=== PATIENT | male | born 1990 | race Caucasian/White ===

== ENCOUNTER 2019-12-01 14:40 | Inpatient (IN) | payer OTHER ==
[2019-12-01 15:58] LABS: Basophils % (A) 0 %; Eosinophils # (A) 0.2 k/uL (0-0.7); Eosinophils % (A) 2 %; HCT 43.3 % (39.0-53.0); HGB 14.5 gm/dL (13.0-17.5); Lymphocytes # (A) 1.2 k/uL (1.0-4.8); Lymphocytes % (A) 12 %; MCH 28.1 pg (25.0-35.0); MCHC 33.4 g/dL (31.0-37.0); MCV 84.3 fL (80.0-100.0); Mean Platelet Volume 8.8; Monocytes # (A) 0.5 k/uL (0-1.0); Monocytes % (A) 5 %; Neutrophils # (A) 8.2 k/uL (1.3-7.7); Neutrophils % (A) 80 %; Platelet Count 198 k/uL (150-450); RBC 5.14 m/uL (4.30-5.90); RDW 12.6 % (11.5-15.5); WBC 10.2 k/uL (3.8-10.6)
[2019-12-01 16:06] LABS: ALT 68 U/L (4-49); AST 37 U/L (17-59); African American GFR (CKD) >90 (>60 ml/min/1.73 sqM); Albumin 4.6 g/dL (3.5-5.0); Alkaline Phosphatase 70 U/L (38-126); Anion Gap 8 mmol/L; Blood Urea Nitrogen 12 mg/dL (9-20); Calcium 9.4 mg/dL (8.4-10.2); Carbon Dioxide 27 mmol/L (22-30); Chloride 101 mmol/L (98-107); Glucose 120 mg/dL (74-99); Magnesium 1.8 mg/dL (1.6-2.3); Non-African American GFR(CKD) >90 (>60 ml/min/1.73 sqM); Potassium 4.4 mmol/L (3.5-5.1); Sodium 136 mmol/L (137-145); Total Bilirubin 0.5 mg/dL (0.2-1.3); Total Protein 7.6 g/dL (6.3-8.2)
[2019-12-01 16:22] LABS: D-Dimer <0.17 mg/L FEU (<0.60); Partial Thromboplastin Time 25.1 sec (22.0-30.0); Prothrombin Time 10.7 sec (9.0-12.0)
[2019-12-01] MEDS ORDERED: HYDROmorphone 1 MG/ML 1 ML SYRINGE IVP STA (16:25)
[2019-12-01] MEDS ORDERED: LORazepam 2 MG/ML INJ IV STA ×2 (16:25→17:34)
--- NOTE | 2019-12-01 16:35 | XR ---
EXAMINATION TYPE: XR chest 2V DATE OF EXAM: 12/01/2019 COMPARISON: None HISTORY: 29-year-old male with chest pain TECHNIQUE: Frontal and lateral views FINDINGS: There is slight shift of the heart towards the left with the very large right-sided pneumothorax appr oaching 90%. There is some hyperinflation that may reflect underlying emphysema. No pleural effusion. IMPRESSION: Large, greater than 90% right-sided pneumothorax with slight leftward cardiac shift suggesting early tension pneumothorax. Critical findings called to Dr. Bose in the ER at 4:30 PM.
--- NOTE | 2019-12-01 17:41 | XR ---
EXAMINATION TYPE: XR chest 1V portable DATE OF EXAM: 12/01/2019 Comparison: Earlier today Clinical History: 29-year-old male right-sided Thoravent placement Findings: Heart normal size. Aorta and pulmonary vasculature within normal limits. Partial reinflation of the r ight lung by approximately 50%. A right-sided pleural catheter is demonstrated. The previous leftward shift has resolved. Impression: Right-sided Thoravent catheter with partial reinflation of the right lung by approximately 50%. The p revious leftward cardiac shift has resolved.
--- NOTE | 2019-12-01 17:57 | ED ---
Chest Pain HPI - General Chief Complaint: Chest Pain Stated Complaint: Chest Pain Time Seen by Provider: 12/01/19 15:10 Source: EMS Mode of arrival: EMS Limitations: no limitations - History of Present Illness Initial Comments: The patient is a 29-year-old male with past medical history of IV drug abuse who presents to the emergency room with reported sudden onset right-sided chest pain. The patient is currently incarcerated. He states that he was relaxing when he had sudden onset of right-sided chest pain. Reports that it is pleuritic in nature and worse when he sits forward. No previous history of underlying pulmonary or cardiac disease. States it makes him feel extremely short of breath. Denies family history of sudden cardiac . No ripping or tearing sensation to his back. Denies diaphoresis, nausea or vomiting. Denies any abdominal pain, numbness, tingling or weakness in his lower extremities. Does admit to intravenous drug use however last used 1.5 months ago. Denies cough or hemoptysis. No fevers or chills. No history of endocarditis. There are no alleviating, precipitating or modifying factors - Related Data Home Medications Medication Instructions Recorded Confirmed Aspirin 325 mg PO ONCE 12/01/19 12/01/19 Allergies Allergy/AdvReac Type Severity Reaction Status Date / Time No Known Allergies Allergy Verified 12/01/19 18:04 Review of Systems ROS Statement: Those systems with pertinent positive or pertinent negative responses have been documented in the HPI. ROS Other: All systems not noted in ROS Statement are negative. EKG Findings - EKG Comments: EKG Findings:: EKQ demonstrates a sinus tachycardia with a ventricular rate of 102. ID interval 146. QRS 90. QTC of 435. No acute ST segment elevations or depressions concerning for ischemic changes Past Medical History Past Medical History: No Reported History History of Any Multi-Drug Resistant Organisms: None Reported Past Surgical History: No Surgical Hx Reported Past Psychological History: ADD/ADHD Smoking Status: Former smoker Past Alcohol Use History: None Reported Past Drug Use History: Methamphetamine - Past Family History Mother Family Medical History: No Reported History Father Family Medical History: Osteoarthritis (OA) General Exam Limitations: no limitations General appearance: alert, in no apparent distress Head exam: Present: atraumatic, normocephalic, normal inspection Eye exam: Present: normal appearance, PERRL, EOMI. Absent: scleral icterus, conjunctival injection, periorbital swelling ENT exam: Present: normal exam, mucous membranes moist Neck exam: Present: normal inspection. Absent: tenderness, meningismus, lymphadenopathy Respiratory exam: Present: other (no ausculated breath sounds on the right. Left sided breath sounds are present and clear). Absent: respiratory distress, wheezes, rales, rhonchi, stridor Cardiovascular Exam: Present: normal rhythm, tachycardia, normal heart sounds. Absent: systolic murmur, diastolic murmur, rubs, gallop, clicks GI/Abdominal exam: Present: soft, normal bowel sounds. Absent: distended, tenderness, guarding, rebound, rigid Extremities exam: Present: normal inspection, full ROM, normal capillary refill. Absent: tenderness, pedal edema, joint swelling, calf tenderness Back exam: Present: normal inspection Neurological exam: Present: alert, oriented X3, CN II-XII intact Psychiatric exam: Present: normal affect, normal mood Skin exam: Present: warm, dry, intact, normal color. Absent: rash Course Vital Signs 12/01/19 12/01/19 12/01/19 15:05 15:07 16:59 Temperature 99.0 F Pulse Rate 106 H 113 H Pulse Rate [ 102 H Creative Intern ] Respiratory 20 22 Rate Blood Pressure 134/89 148/97 Blood Pressure [Right Arm] O2 Sat by Pulse 98 100 Oximetry 12/01/19 12/01/19 12/01/19 17:05 17:15 17:36 Temperature Pulse Rate 101 H 109 H 86 Pulse Rate [ Creative Intern ] Respiratory 18 18 20 Rate Blood Pressure 139/108 148/101 146/80 Blood Pressure [Right Arm] O2 Sat by Pulse 100 100 100 Oximetry 12/01/19 12/01/19 12/01/19 19:08 19:39 19:44 Temperature 98.9 F 99.0 F Pulse Rate 90 76 Pulse Rate [ 76 Creative Intern ] Respiratory 18 18 18 Rate Blood Pressure 138/88 128/80 Blood Pressure 140/84 [Right Arm] O2 Sat by Pulse 100 100 100 Oximetry Procedures - [place] Protocol (Time Out) Procedure Performed:: Thoravedamaris Performing Provider: Celena Bose Nurse: Shakila Bautista Patient Identification (2 identifiers required): Chart, Verbal, Arm Band, Name, Birthdate 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 A thorough history and physical exam was performed. Peripheral IV was established. Laboratory studies were conducted and the patient was sent for chest x-ray. The chest x-ray is reviewed by myself and does demonstrate a large pneumothorax. It is read by the radiologist and results were called to me which reinforce the diagnosis of a large greater than 90% right-sided pneumothorax with slightly leftward cardiac shift suggesting early tension. The patient had been moved to trauma bay 2. He was given 1 mg of Dilaudid and 1 mg of Ativan for pain and anxiety. I did dis cuss placement of a chest tube for which the patient did agree. Timeout was performed at 1658. A Thoravent was used. Approximately 5 minutes after placement I did repeat a portal chest x-ray which demonstrates right-sided Thoravent catheter with partial reinflation of the right lung by approximately 50%. The thoravent was on wall suction and then was transferred over to an atrium. Patient does have improvement in his heart rate as well as pain level. I discussed admission with the patient which he did agree. The patient was admitted to Dr. Wright I also discussed the case with Dr. Flores who will be managing the patient's Thora vent. The patient remained in stable condition was transported to the floor Critical Care Time Critical Care Time: Yes (32 minutes independant of procedures performed) Disposition Clinical Impression: Chest pain, Spontaneous pneumothorax Disposition: ADMITTED IP TO THIS [facility] Condition: Serious Is patient prescribed a controlled substance at d/c from ED?: No Decision to Admit Reason: Admit from EC Decision Date: 12/01/19 Decision Time: 18:19
[2019-12-01] MEDS ORDERED: NALOXONE 0.4 MG/ML 1 ML VIAL IV PRN (18:19)
[2019-12-01] MEDS: MORPHINE SULFATE 4 MG/ML SYRINGE IV PRN (20:42)
[2019-12-01] MEDS: KETOROLAC 30 MG/ML 1 ML VIAL IVP PRN (23:19)
[2019-12-02 06:29] LABS: Basophils % (A) 0 %; Eosinophils # (A) 0.4 k/uL (0-0.7); Eosinophils % (A) 5 %; HCT 40.9 % (39.0-53.0); HGB 13.7 gm/dL (13.0-17.5); Lymphocytes # (A) 2.3 k/uL (1.0-4.8); Lymphocytes % (A) 27 %; MCH 28.4 pg (25.0-35.0); MCHC 33.6 g/dL (31.0-37.0); MCV 84.5 fL (80.0-100.0); Mean Platelet Volume 8.6; Monocytes # (A) 0.6 k/uL (0-1.0); Monocytes % (A) 8 %; Neutrophils % (A) 58 %; Platelet Count 237 k/uL (150-450); RBC 4.84 m/uL (4.30-5.90); RDW 12.6 % (11.5-15.5); WBC 8.6 k/uL (3.8-10.6)
[2019-12-02 06:42] LABS: African American GFR (CKD) >90 (>60 ml/min/1.73 sqM); Anion Gap 7 mmol/L; Blood Urea Nitrogen 12 mg/dL (9-20); Calcium 9.4 mg/dL (8.4-10.2); Carbon Dioxide 27 mmol/L (22-30); Chloride 104 mmol/L (98-107); Glucose 94 mg/dL (74-99); Non-African American GFR(CKD) >90 (>60 ml/min/1.73 sqM); Potassium 4.2 mmol/L (3.5-5.1); Sodium 138 mmol/L (137-145)
--- NOTE | 2019-12-02 07:46 | XR ---
EXAMINATION TYPE: XR chest 1V DATE OF EXAM: 12/02/2019 COMPARISON: 12/01/2019 HISTORY: Follow-up pneumothorax TECHNIQUE: Single frontal view of the chest is obtained. FINDINGS: Right-sided pleural catheter redemonstrated with persistent but much improved pneumothorax. Pneumotho rax is estimated at 20-25%. The lungs are clear. The cardiac silhouette size is within normal limits. The osseous structures are intact. IMPRESSION: 1. Right-sided pleural catheter redemonstrated with persistent but much improved pneumothorax. Pneum othorax is estimated at 20-25%.
--- NOTE | 2019-12-02 07:53 | HP ---
HISTORY AND PHYSICAL A 29-year-old white male with past medical history of IV drug abuse, who presents to ER with sudden onset right-sided chest pain. He is in residential. His pain is more pleuritic in nature. No history of prior pulmonary or cardiac disease. Extremely short of breath. Denies family history of sudden cardiac . No ripping or tearing sensation. No diaphoresis. He used drugs through the IV 1-1/2 months ago. Denies any cough, hemoptysis. No history of endocarditis. MEDICATIONS: He takes aspirin. ALLERGIES: Negative. REVIEW OF SYSTEM: Fourteen-point review of systems, otherwise negative except for mentioned in HPI. EKG shows sinus tach, 102, QTc 435, no ST-T changes. PAST MEDICAL HISTORY: ADHD, former smoker, drug use, methamphetamine in the past. PHYSICAL EXAMINATION: Temp 99, pulse 106 to 113, blood pressure 130s to 140s over 80s to 90s. CARDIOVASCULAR: S1, S2. LUNGS: Transmitted upper airway sounds. Decreased breath sounds. He has a large pneumothorax which chest tube was in place. Pulmonary is on consult for this. Will have to admit the patient for spontaneous pneumothorax and chest pain. GI: Soft. HEMATOLOGY: Negative Homans. PSYCH: Fair mood and affect. NEUROLOGIC: Alert and orient x3. Continue current treatment with chest tube. Pulmonary consultation is recommended and ordered. MMODL / IJN: [id number] /
[2019-12-02] MEDS: KETOROLAC 30 MG/ML 1 ML VIAL IVP PRN (08:36)
[2019-12-02] MEDS: MORPHINE SULFATE 4 MG/ML SYRINGE IV PRN ×3 (10:17→21:56)
--- NOTE | 2019-12-02 15:38 | P.CNPUL ---
History of Present Illness Reason for consult: dyspnea, pneumothorax Chief complaint: Chest pain or shortness of breath of one day duration History of present illness: This is a 29-year-old male who was in incarceration patient has a history of smoking 1 pack per day has not been smoking for last 1 month, patient has a acute onset of chest pain on the right side with increasing shortness of breath came into emergency department chest x-ray showed her and noted to have more than 90% pneumothorax with midline shift evidence of a tension pneumothorax patient underwent for a vent placement post procedure chest x-ray showed improvement with a residual 50% pneumothorax this morning x-ray is 20% pneumothorax, chest tube has been connected to suction -20 cm water, today's x- ray reviewed 20% pneumothorax is present, significant air leak is still present, Review of Systems All systems: negative Past Medical History Past Medical History: No Reported History History of Any Multi-Drug Resistant Organisms: None Reported Past Surgical History: No Surgical Hx Reported Past Psychological History: ADD/ADHD Smoking Status: Former smoker Past Alcohol Use History: None Reported Past Drug Use History: Methamphetamine Medications and Allergies Home Medications Medication Instructions Recorded Confirmed Type Aspirin 325 mg PO ONCE 12/01/19 12/01/19 History Allergies Allergy/AdvReac Type Severity Reaction Status Date / Time No Known Allergies Allergy Verified 12/01/19 18:04 Physical Exam Vitals: Vital Signs Temp Pulse Pulse Resp BP BP Pulse Ox 12/02/19 12:00 80 17 118/66 100 12/02/19 08:00 98.2 F 75 20 123/71 100 12/02/19 03:35 76 18 128/72 100 12/02/19 00:00 98 F 75 18 137/82 100 12/01/19 19:44 99.0 F 76 18 128/80 100 12/01/19 19:39 98.9 F 76 18 140/84 100 12/01/19 19:08 90 18 138/88 100 12/01/19 17:36 86 20 146/80 100 12/01/19 17:15 109 H 18 148/101 100 12/01/19 17:05 101 H 18 139/108 100 12/01/19 16:59 113 H 22 148/97 100 Intake and Output 12/02/19 12/02/19 12/02/19 06:59 14:59 22:59 Intake Total 820 Output Total 750 600 Balance -750 220 Intake: Oral 820 Output: Urine 750 600 Other: Voiding Method Urinal # Voids 2 Weight 82.5 kg - Constitutional General appearance: average body habitus, cooperative, disheveled - EENT Eyes: EOMI, PERRLA ENT: normal oropharynx Ears: bilateral: normal - Neck Neck: normal ROM Carotids: bilateral: upstroke normal Thyroid: bilateral: normal size - Respiratory Respiratory: right: diminished, negative: CTA, dullness, rales, rhonchi, wheezing, prolonged expiration - Cardiovascular Rhythm: regular Heart sounds: normal: S1, S2 - Gastrointestinal General gastrointestinal: normal bowel sounds, soft - Integumentary Integumentary: normal turgor - Neurologic Neurologic: CNII-XII intact - Musculoskeletal Musculoskeletal: gait normal, strength equal bilaterally - Psychiatric Psychiatric: A&O x's 3, appropriate affect, intact judgment & insight Results - Laboratory Findings CBC and BMP: 12/02/19 05:53 12/02/19 05:53 PT/INR, D-dimer PT 10.7 sec (9.0-12.0) 12/01/19 15:40 INR 1.0 (<1.2) 12/01/19 15:40 D-Dimer <0.17 mg/L FEU (<0.60) 12/01/19 15:40 Abnormal lab findings: Abnormal Labs 12/01/19 12/01/19 15:40 15:40 Neutrophils # 8.2 H Sodium 136 L Glucose 120 H ALT 68 H - Diagnostic Findings Chest x-ray: report reviewed, image reviewed (Chest x-ray findings as reported above on chest x-ray reviewed) Assessment and Plan Assessment: Spontaneous tension pneumothorax on the right side Chest pain or shortness of breath related to above Plan: Continue thoravent vent Chest tube to suction Continue deep breathing exercise Pain management Time with Patient: Greater than 30
[2019-12-03] MEDS: MORPHINE SULFATE 4 MG/ML SYRINGE IV PRN ×4 (04:34→20:29)
--- NOTE | 2019-12-03 08:24 | XR ---
EXAMINATION TYPE: XR chest 1V DATE OF EXAM: 12/03/2019 COMPARISON: Prior chest x-ray 12/02/2019 HISTORY: Pneumothorax and chest tube TECHNIQUE: frontal view of the chest is obtained on 2 images. FINDINGS: Right-sided thoracic vent is again noted. There is persistent moderate right-sided pneumot horax, no evident tension. Subcutaneous emphysema changes are present. No evident pleural effusion. H eart size is stable. IMPRESSION: Moderate right-sided pneumothorax with subcutaneous emphysema.
--- NOTE | 2019-12-04 00:59 | PN ---
PROGRESS NOTE 29-year-old white male persistent moderate-sized right pneumothorax. Chest tube still in place. Feeling better. Cardiovascular S1-S2. Lungs show chest tube in place. Hematology negative Homans. Psych fair mood and affect. ASSESSMENT AND PLAN: 1. Moderate size right-sided pneumothorax. 2. Subcutaneous emphysema. 3. Chest tube in place. 4. Continue with PT/OT. 5. Possible current treatment. 6. Await for pulmonology to remove chest tube. MMODL / IJN: [id number] /
[2019-12-04] MEDS: MORPHINE SULFATE 4 MG/ML SYRINGE IV PRN ×4 (03:01→19:36)
--- NOTE | 2019-12-04 08:03 | XR ---
EXAMINATION TYPE: XR chest 1V portable DATE OF EXAM: 12/04/2019 HISTORY: right pneumothorax. REFERENCE: Previous study dated 12/03/2019. FINDINGS: Right pleural drain is in place. I can no longer identify pneumothorax. The lungs appear cl ear. Heart size is normal. IMPRESSION: RESOLUTION OF THE PATIENT'S RIGHT-SIDED PNEUMOTHORAX.
--- NOTE | 2019-12-04 11:04 | P.GSCN ---
History of Present Illness Consult date: 12/04/19 Reason for Consult: Right pneumothorax Requesting physician: Andrea Flores History of present illness: This is a 29-year-old gentleman who is incarceration and recently moved here from [place]. He is a past medical history significant for chronic ongoing tobacco use which she smokes about one pack per day, and a recent history of methamphetamine use. He reports the last time he used methamphetamine was about 1-1/2 months ago. He presented to the emergency department here at [facility] on 12/01/2019 with complaints of acute onset of shortness of breath and right-sided chest pain. 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 He states that he has been having some intermittent episodes of pain to his right chest since. Denies any complaints of nausea or vomiting, hemoptysis, cough, recent trauma or injury, fever or chills. In the emergency department a chest x-ray was completed which demonstrated a large, greater than 90% right- sided pneumothorax with slight left for chest suggesting early tension pneumothorax. Subsequently, a right chest Thoravent was placed by the emergency room physician. Post Thoravent placement a repeat chest x-ray was completed which showed partial reinflation of the right lung by approximately 50%. The right Thoravent chest tube remains in place with continuous air leak present, and his chest x-ray report from yesterday shows a moderate right-sided pneumothorax with subcutaneous emphysema. Due to the patient's continuous air leak and persistent right-sided pneumothorax a consult was placed Dr. Jorge L Saucedo from cardiothoracic surgery for further evaluation and treatment r ecommendations. Review of Systems A 14 point review of systems was completed was negative except as mentioned in the HPI. 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 Past Anesthesia/Blood Transfusion Reactions: No Reported Reaction Past Psychological History: ADD/ADHD Smoking Status: Current every day smoker Past Alcohol Use History: None Reported Past Drug Use History: IV Drug Use, Methamphetamine - Past Family History Mother Family Medical History: No Reported History Father Family Medical History: Osteoarthritis (OA) Medications and Allergies Home Medications Medication Instructions Recorded Confirmed Type Aspirin 325 mg PO ONCE 12/01/19 12/01/19 History Allergies Allergy/AdvReac Type Severity Reaction Status Date / Time No Known Allergies Allergy Verified 12/01/19 18:04 Surgical - Exam Vital Signs Temp Pulse Resp BP Pulse Ox 99.0 F 106 H 20 134/89 98 12/01/19 15:05 12/01/19 15:05 12/01/19 15:05 12/01/19 15:05 12/01/19 15:05 This is a 29-year-old gentleman who is in no acute distress. Cooperative. Oxygen saturation is 97% on room air. - General well developed, well nourished, no distress, no pain - Eyes normal ocular movement - ENT normal pinna, normal nares, normal mucosa, no hearing loss, no congestion - Neck No JVD, no lymphadenopathy. no masses, no bruits, trachea midline, no venous distension - Respiratory Lung sounds are essentially clear throughout. Diminished to his right lower lobe. No wheezes, crackles or rhonchi. Respirations are symmetrical and nonlabored. Right Thoravent chest tube in place to low continuous wall suction -20 cm H2O. Draining thin serosanguineous drainage. Continuous air leak is present. - Cardiovascular Regular rhythm and rate. S1 and S2 present, negative for S3, gallop or murmur. No edema present. - Abdomen Abdomen is soft, nontender and nondistended. Active bowel sounds present in all 4 abdominal quadrants. No guarding or rigidity. No organomegaly appreciated. - Genitourinary Deferred - Rectum Deferred - Integumentary no rash, no growths, no abnormal pigmentation - Neurologic normal coordination, normal sensation - Musculoskeletal normal gait, normal posture - Psychiatric oriented to time, oriented to person, oriented to place, speech is normal, memory intact Results - Labs 12/02/19 05:53 12/02/19 05:53 - Imaging Chest x-ray: report reviewed, image reviewed Assessment and Plan Assessment: 1. Spontaneous right sided tension pneumothorax, status post Thoravent chest tube placement 2. Acute shortness of breath secondary to above 3. Chronic ongoing tobacco abuse 4. History of methamphetamine use Plan: The patient was seen and examined at his bedside on the third floor cardiac care unit. His chart and diagnostics were reviewed. His case was discussed in detail with Dr. Jorge L Saucedo from cardiothoracic surgery. No surgical intervention is warranted at this time. We will continue to follow the patient and monitor for airleak resolution. His oxygen saturations are 99% on 3 L nasal cannula, wean oxygen as tolerated to keep sats equal to or greater than 92 percent. We will order an incentive spirometry and encourage use 10 times every hour. Discussed the importance of smoking cessation. Continue to monitor his daily chest x-rays. Keep the right Thoravent to low continuous wall suction -20 cm H2O. Medical management and other comorbidities per primary and pulmonary care service. More recommendations to follow based on patient's clinical course. Thank you Dr. Flores for this consult and look forward to following in the care of this patient with you. Time with Patient: Greater than 30
--- NOTE | 2019-12-04 15:06 | P.PN ---
Subjective Progress Note Date: 12/03/19 (Late entry note) Principal diagnosis: Spontaneous tension pneumothorax on the right side Chest pain or shortness of breath related to above 12/03/2019, patient seen eval reexamined during the rounds labs reviewed medications reviewed care plan discussed with the patient radiographic studies reviewed, chest x-ray still showing moderate pneumothorax, subcu emphysema chest tube is still draining air This is a 29-year-old male who was in incarceration patient has a history of smoking 1 pack per day has not been smoking for last 1 month, patient has a acute onset of chest pain on the right side with increasing shortness of breath came into emergency department chest x-ray showed her and noted to have more than 90% pneumothorax with midline shift evidence of a tension pneumothorax patient underwent for a vent placement post procedure chest x-ray showed improvement with a residual 50% pneumothorax this morning x-ray is 20% pneumothorax, chest tube has been connected to suction -20 cm water, today's x- ray reviewed 20% pneumothorax is present, significant air leak is still present, Objective - Vital Signs Vital signs: Vital Signs Temp 97.9 F Pulse 53 Resp 16 BP 13/70 Pulse Ox 99 on 3 lpm Intake & Output 12/03/19 18:59 Intake Total Output Total 750 Balance -750 Weight Intake: Oral Output: Urine 750 Other: # Bowel Movements 0 - Exam - Constitutional General appearance: average body habitus, cooperative, disheveled - EENT Eyes: EOMI, PERRLA ENT: normal oropharynx Ears: bilateral: normal - Neck Neck: normal ROM Carotids: bilateral: upstroke normal Thyroid: bilateral: normal size - Respiratory Respiratory: right: diminished, negative: CTA, dullness, rales, rhonchi, wheezing, prolonged expiration - Cardiovascular Rhythm: regular Heart sounds: normal: S1, S2 - Gastrointestinal General gastrointestinal: normal bowel sounds, soft - Integumentary Integumentary: normal turgor - Neurologic Neurologic: CNII-XII intact - Musculoskeletal Musculoskeletal: gait normal, strength equal bilaterally - Psychiatric Psychiatric: A&O x's 3, appropriate affect, intact judgment & insight - Labs CBC & Chem 7: 12/02/19 05:53 12/02/19 05:53 Assessment and Plan Assessment: Spontaneous tension pneumothorax on the right side Chest pain or shortness of breath related to above Plan: Continue thoravent vent Chest tube to suction Continue deep breathing exercise Pain management Consult cardiothoracic surgery non-resolving pneumothorax Time with Patient: Greater than 30
--- NOTE | 2019-12-04 15:07 | P.PN ---
Subjective Progress Note Date: 12/04/19 Principal diagnosis: Spontaneous tension pneumothorax on the right side Chest pain or shortness of breath related to above 12/04/2019, patient seen eval examined during the rounds labs reviewed medications reviewed radiographic studies reviewed, pneumothorax improved significantly, but still air leak is present cardiothoracic surgery have evaluated the patient and appreciate their input pain is better now is more of a soreness 12/03/2019, patient seen eval reexamined during the rounds labs reviewed medications reviewed care plan discussed with the patient radiographic studies reviewed, chest x-ray still showing moderate pneumothorax, subcu emphysema chest tube is still draining air This is a 29-year-old male who was in incarceration patient has a history of smoking 1 pack per day has not been smoking for last 1 month, patient has a acute onset of chest pain on the right side with increasing shortness of breath came into emergency department chest x-ray showed her and noted to have more than 90% pneumothorax with midline shift evidence of a tension pneumothorax patient underwent for a vent placement post procedure chest x-ray showed improvement with a residual 50% pneumothorax this morning x-ray is 20% pneumothorax, chest tube has been connected to suction -20 cm water, today's x- ray reviewed 20% pneumothorax is present, significant air leak is still present, Objective - Vital Signs Vital signs: Vital Signs Temp 97.9 F 12/04/19 08:00 Pulse 80 12/04/19 12:00 Resp 16 12/04/19 14:45 BP 123/64 12/04/19 12:00 Pulse Ox 97 12/04/19 12:00 Intake & Output 12/03/19 12/04/19 12/04/19 18:59 06:59 18:59 Intake Total 888 Output Total 750 1800 Balance -750 -912 Weight 84.5 kg Intake: Oral 888 Output: Urine 750 1800 Other: # Bowel Movements 0 - Exam - Constitutional General appearance: average body habitus, cooperative, disheveled - EENT Eyes: EOMI, PERRLA ENT: normal oropharynx Ears: bilateral: normal - Neck Neck: normal ROM Carotids: bilateral: upstroke normal Thyroid: bilateral: normal size - Respiratory Respiratory: right: diminished, negative: CTA, dullness, rales, rhonchi, wheezing, prolonged expiration - Cardiovascular Rhythm: regular Heart sounds: normal: S1, S2 - Gastrointestinal General gastrointestinal: normal bowel sounds, soft - Integumentary Integumentary: normal turgor - Neurologic Neurologic: CNII-XII intact - Musculoskeletal Musculoskeletal: gait normal, strength equal bilaterally - Psychiatric Psychiatric: A&O x's 3, appropriate affect, intact judgment & insight - Labs CBC & Chem 7: 12/02/19 05:53 12/02/19 05:53 Assessment and Plan Assessment: Spontaneous tension pneumothorax on the right side Chest pain or shortness of breath related to above Plan: Continue thoravent vent Chest tube to suction Continue deep breathing exercise Pain management Reviewed Consult cardiothoracic surgery non-resolving pneumothorax Time with Patient: Greater than 30
--- NOTE | 2019-12-04 23:58 | PN ---
PROGRESS NOTE The patient remains with a chest tube in for pneumothorax. Medicines reviewed. Radiographic studies reviewed. Pneumothorax improved significantly. Air leak still present. Cardiovascular, thoracic surgery evaluated. Possible input. Possible pleurodesis will be needed on Friday. Vital signs stable. Afebrile. Cardiovascular S1, S2. Hematology negative Homans. Temp 97.9, pulse 80, respiratory 16 to 18, blood pressure 123/64, O2 97. GI soft. ASSESSMENT: 1. Spontaneous tension pneumothorax with right-sided chest pain and shortness of breath related to above. 2. Continue Thorvent. 3. Vent tube. 4. Chest tube to suction. 5. Continue deep exercises. 6. Pain management. MMODL / IJN: [id number] /
[2019-12-05] MEDS: MORPHINE SULFATE 4 MG/ML SYRINGE IV PRN ×5 (00:13→23:34)
--- NOTE | 2019-12-05 07:24 | XR ---
EXAMINATION TYPE: XR chest 1V portable DATE OF EXAM: 12/05/2019 HISTORY: right sided pneumothorax. REFERENCE: Previous study dated 12/04/2019. FINDINGS: The right pleural drain remains in place. There is a 50-60% by volume pneumothorax on the r ight. This has worsened considerably from yesterday study. The heart is not enlarged. The lungs are o therwise clear. Pleural spaces are clear. IMPRESSION: ENLARGING RIGHT-SIDED PNEUMOTHORAX.
--- NOTE | 2019-12-05 07:55 | XR ---
EXAMINATION TYPE: XR chest 1V portable DATE OF EXAM: 12/05/2019 HISTORY: right pneumothorax . REFERENCE: Previous study of earlier today. FINDINGS: The patient's right pleural event has been repositioned. Right-sided pneumothorax appears t o have resolved. Lungs appear clear. Pleural space are clear. The heart is not enlarged. IMPRESSION: RESOLUTION OF THE PATIENT'S RIGHT-SIDED PNEUMOTHORAX.
--- NOTE | 2019-12-05 10:31 | P.PN ---
Subjective Progress Note Date: 12/05/19 Principal diagnosis: This is a 29-year-old gentleman who is incarceration and recently moved here from [place]. He is a past medical history significant for chronic ongoing tobacco use which she smokes about one pack per day, and a recent history of methamphetamine use. He reports the last time he used methamphetamine was about 1-1/2 months ago. He presented to the emergency department here at [facility] on 12/01/2019 with complaints of acute onset of shortness of breath and right-sided chest pain. 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 He states that he has been having some intermittent episodes of pain to his right chest since. Denies any complaints of nausea or vomiting, hemoptysis, cough, recent trauma or injury, fever or chills. In the emergency department a chest x-ray was completed which demonstrated a large, greater than 90% right- sided pneumothorax with slight left for chest suggesting early tension pneumothorax. Subsequently, a right chest Thoravent was placed by the emergency room physician. Post Thoravent placement a repeat chest x-ray was completed which showed partial reinflation of the right lung by approximately 50%. The right Thoravent chest tube remains in place with continuous air leak present, and his chest x-ray report from yesterday shows a moderate right-sided pneumothorax with subcutaneous emphysema. Due to the patient's continuous air leak and persistent right-sided pneumothorax a consult was placed Dr. Jorge L Saucedo from cardiothoracic surgery for further evaluation and treatment recommendations. On 12/05/2019 the patient was seen on the third floor cardiac care unit on follow-up. The patient is resting comfortably in bed. He is in no acute distress, denies any complaints of shortness of breath or pain at this time. A chest x-ray was completed this morning which demonstrated a 50-60% by volume right pneumothorax despite the Thoravent being in place. The right chest Thoravent was flushed with 2 mL of air and place back to low continuous wall suction -20 cm H2O with a repeat chest x-ray completed which demonstrated a resolution of the patient's right-sided pneumothorax. A continuous air leak is present. Oxygen saturations are 98% on room air. He is hemodynamically stable and has been afebrile the last 24 hours. Objective - Vital Signs Vital signs: Vital Signs Temp 98.0 F 12/05/19 04:03 Pulse 56 L 12/05/19 04:03 Resp 16 12/05/19 04:03 BP 140/78 12/05/19 04:03 Pulse Ox 98 12/05/19 04:03 Intake & Output 12/04/19 12/05/19 12/05/19 18:59 06:59 18:59 Intake Total 480 240 Output Total 720 Balance -240 240 Weight 83.8 kg Intake: Oral 480 240 Output: Chest Tube Drainage 20 Thora-Vent Right 20 Urine 700 Other: # Voids 1 - Exam This is a 29-year-old gentleman who is in no acute distress. Cooperative. Oxygen saturation is 98% on room air. - Constitutional General appearance: Present: cooperative, no acute distress - EENT Eyes: Present: PERRLA, normal appearance. Absent: scleral icterus ENT: Present: hearing grossly normal, normal oropharynx - Neck Details: Neck is supple, no JVD. Neck: Absent: lymphadenopathy, stridor - Respiratory Details: Lung sounds are essentially clear throughout. Diminished to his right lower lobe. No wheezes, crackles or rhonchi. Respirations are symmetrical and nonlabored. Right Thoravent chest tube in place to low continuous wall suction -20 cm H2O. Draining thin serosanguineous drainage. Continuous air leak is present. - Cardiovascular Details: Regular rhythm and rate. S1 and S2 present, negative for S3, gallop or murmur. No edema present. - Gastrointestinal Gastrointestinal Comment(s): Abdomen is soft, nontender and nondistended. Active bowel sounds present in all 4 abdominal quadrants. No guarding or rigidity. No organomegaly appreciated. - Integumentary Integumentary Comment(s): Skin is warm and dry. No clubbing or cyanosis is present. No rash or abnormal pigmentation is present. Right chest Thoravent dressing clean and dry. - Neurologic Neurologic: Present: CNII-XII intact - Musculoskeletal Musculoskeletal: Present: gait normal, strength equal bilaterally - Psychiatric Psychiatric: Present: A&O x's 3, appropriate affect, intact judgment & insight - Allied health notes Allied health notes reviewed: nursing - Labs CBC & Chem 7: 12/02/19 05:53 12/02/19 05:53 - Imaging and Cardiology Chest x-ray: report reviewed, image reviewed Assessment and Plan Assessment: 1. Spontaneous right sided tension pneumothorax, status post Thoravent chest tube placement 2. Acute shortness of breath secondary to above 3. Chronic ongoing tobacco abuse 4. History of methamphetamine use Plan: 1. Continue his right Thoravent chest tube to low continuous wall suction -20 cm H2O. 2. Encourage use of his incentive spirometry 10 times every hour. 3. The importance of smoking cessation was discussed with the patient. 4. Continue to monitor his daily chest x-rays. 5. If the air leak remains persistent and continuous the patient may require a VATS procedure with wedge resection. Continue to monitor for airleak resolution at this time. 6. Medical management and other comorbidities per primary care service. 7. More recommendations to follow based on patient's clinical course. Time with Patient: Less than 30
--- NOTE | 2019-12-05 12:49 | P.PN ---
Subjective Progress Note Date: 12/05/19 Principal diagnosis: Spontaneous tension pneumothorax on the right side Chest pain or shortness of breath related to above 12/05/2019, patient continued to have shortness of breath and a leak is still present, CN saturation is stable, this morning x-ray shows a 40% pneumothorax, thoracic surgery flushed the thoravent, x-ray improved now 12/04/2019, patient seen eval examined during the rounds labs reviewed medications reviewed radiographic studies reviewed, pneumothorax improved significantly, but still air leak is present cardiothoracic surgery have evaluated the patient and appreciate their input pain is better now is more of a soreness 12/03/2019, patient seen eval reexamined during the rounds labs reviewed medications reviewed care plan discussed with the patient radiographic studies reviewed, chest x-ray still showing moderate pneumothorax, subcu emphysema chest tube is still draining air This is a 29-year-old male who was in incarceration patient has a history of smoking 1 pack per day has not been smoking for last 1 month, patient has a acute onset of chest pain on the right side with increasing shortness of breath came into emergency department chest x-ray showed her and noted to have more than 90% pneumothorax with midline shift evidence of a tension pneumothorax patient underwent for a vent placement post procedure chest x-ray showed improvement with a residual 50% pneumothorax this morning x-ray is 20% pneumothorax, chest tube has been connected to suction -20 cm water, today's x- ray reviewed 20% pneumothorax is present, significant air leak is still present, Objective - Vital Signs Vital signs: Vital Signs Temp 98.0 F 12/05/19 04:03 Pulse 56 L 12/05/19 04:03 Resp 16 12/05/19 04:03 BP 140/78 12/05/19 04:03 Pulse Ox 98 12/05/19 04:03 Intake & Output 12/04/19 12/05/19 12/05/19 18:59 06:59 18:59 Intake Total 480 240 Output Total 720 Balance -240 240 Weight 83.8 kg Intake: Oral 480 240 Output: Chest Tube Drainage 20 Thora-Vent Right 20 Urine 700 Other: # Voids 1 - Exam - Constitutional General appearance: average body habitus, cooperative, disheveled - EENT Eyes: EOMI, PERRLA ENT: normal oropharynx Ears: bilateral: normal - Neck Neck: normal ROM Carotids: bilateral: upstroke normal Thyroid: bilateral: normal size - Respiratory Respiratory: right: diminished, negative: CTA, dullness, rales, rhonchi, wheezing, prolonged expiration - Cardiovascular Rhythm: regular Heart sounds: normal: S1, S2 - Gastrointestinal General gastrointestinal: normal bowel sounds, soft - Integumentary Integumentary: normal turgor - Neurologic Neurologic: CNII-XII intact - Musculoskeletal Musculoskeletal: gait normal, strength equal bilaterally - Psychiatric Psychiatric: A&O x's 3, appropriate affect, intact judgment & insight - Labs CBC & Chem 7: 12/02/19 05:53 12/02/19 05:53 Assessment and Plan Assessment: Spontaneous tension pneumothorax on the right side Chest pain or shortness of breath related to above Plan: Continue thoravent vent Chest tube to suction Continue deep breathing exercise Pain management Reviewed Consult cardiothoracic surgery non-resolving pneumothorax If air leak continued to be present patient might require VATS in 24-48 hours Time with Patient: Greater than 30
--- NOTE | 2019-12-05 23:45 | PN ---
PROGRESS NOTE This 29-year-old white male with spontaneous tension pneumothorax on the right side and did have shortness of breath and leak is still present. X-ray shows 40% pneumothorax. Thoracic surgery flush and possible pleurodesis will be done in the morning. Pulse 78, respiratory rate 14 to 19, blood pressure 126 to 131 over 72 to 78, saturating 99% to100% on room air. Chest tube in the right chest anteriorly. CARDIOVASCULAR: S1, S2, 8 out of 10 pain level. GI: Soft. PSYCH: Fair mood and affect. PLAN: Continue with possible pleurodesis if there is still a leak. Continue to reinflate the lung. Prognosis guarded. Pain control. MMODL / IJN: [id number] /
[2019-12-06] MEDS: MORPHINE SULFATE 4 MG/ML SYRINGE IV PRN ×5 (05:25→23:22)
[2019-12-06 06:21] LABS: Basophils % (A) 0 %; Eosinophils # (A) 0.4 k/uL (0-0.7); Eosinophils % (A) 6 %; HCT 45.4 % (39.0-53.0); HGB 15.6 gm/dL (13.0-17.5); Lymphocytes # (A) 2.6 k/uL (1.0-4.8); Lymphocytes % (A) 40 %; MCH 28.8 pg (25.0-35.0); MCHC 34.4 g/dL (31.0-37.0); MCV 83.8 fL (80.0-100.0); Mean Platelet Volume 8.8; Monocytes # (A) 0.5 k/uL (0-1.0); Monocytes % (A) 7 %; Neutrophils # (A) 2.9 k/uL (1.3-7.7); Neutrophils % (A) 44 %; Platelet Count 236 k/uL (150-450); RBC 5.42 m/uL (4.30-5.90); RDW 12.6 % (11.5-15.5); WBC 6.6 k/uL (3.8-10.6)
[2019-12-06 06:24] LABS: ALT 78 U/L (4-49); African American GFR (CKD) >90 (>60 ml/min/1.73 sqM); Albumin 4.7 g/dL (3.5-5.0); Anion Gap 13 mmol/L; Blood Urea Nitrogen 24 mg/dL (9-20); Calcium 9.9 mg/dL (8.4-10.2); Carbon Dioxide 23 mmol/L (22-30); Chloride 100 mmol/L (98-107); Glucose 80 mg/dL (74-99); Non-African American GFR(CKD) >90 (>60 ml/min/1.73 sqM); Sodium 136 mmol/L (137-145); Total Bilirubin 0.7 mg/dL (0.2-1.3); Total Protein 8.1 g/dL (6.3-8.2)
[2019-12-06 06:25] LABS: AST 50 U/L (17-59); Alkaline Phosphatase 60 U/L (38-126); Potassium 4.9 mmol/L (3.5-5.1)
--- NOTE | 2019-12-06 08:00 | XR ---
EXAMINATION TYPE: XR chest 1V portable DATE OF EXAM: 12/06/2019 COMPARISON: 09/05/2019 HISTORY: Follow-up pneumothorax TECHNIQUE: Single frontal view of the chest is obtained. FINDINGS: Right Sided pleural catheter again noted. There is an estimated 20-25% right-sided pneumothorax. Smal l amount of subcutaneous air seen. No mediastinal shift. Left lung is clear. The cardiac silhouette size is within normal limits. The osseous structures are intact. IMPRESSION: 1. 20-25% right-sided pneumothorax noted. A Red level critical message alert has been initiated for Jhon Hammond MD via the [employer] Critical Results System on 12/06/2019 7:57 AM. This message alert has been sent to Jhon Hammond MD via the preferences provided by the clinician for the receipt of Radiology Critical Findings. Message ID [id number].
--- NOTE | 2019-12-06 11:44 | P.PN ---
Subjective Progress Note Date: 12/06/19 Principal diagnosis: This is a 29-year-old gentleman who is incarceration and recently moved here from [place]. He is a past medical history significant for chronic ongoing tobacco use which she smokes about one pack per day, and a recent history of methamphetamine use. He reports the last time he used methamphetamine was about 1-1/2 months ago. He presented to the emergency department here at [facility] on 12/01/2019 with complaints of acute onset of shortness of breath and right-sided chest pain. 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 He states that he has been having some intermittent episodes of pain to his right chest since. Denies any complaints of nausea or vomiting, hemoptysis, cough, recent trauma or injury, fever or chills. In the emergency department a chest x-ray was completed which demonstrated a large, greater than 90% right- sided pneumothorax with slight left for chest suggesting early tension pneumothorax. Subsequently, a right chest Thoravent was placed by the emergency room physician. Post Thoravent placement a repeat chest x-ray was completed which showed partial reinflation of the right lung by approximately 50%. The right Thoravent chest tube remains in place with continuous air leak present, and his chest x-ray report from yesterday shows a moderate right-sided pneumothorax with subcutaneous emphysema. Due to the patient's continuous air leak and persistent right-sided pneumothorax a consult was placed Dr. Jorge L Saucedo from cardiothoracic surgery for further evaluation and treatment recommendations. On 12/05/2019 the patient was seen on the third floor cardiac care unit on follow-up. The patient is resting comfortably in bed. He is in no acute distress, denies any complaints of shortness of breath or pain at this time. A chest x-ray was completed this morning which demonstrated a 50-60% by volume right pneumothorax despite the Thoravent being in place. The right chest Thoravent was flushed with 2 mL of air and place back to low continuous wall suction -20 cm H2O with a repeat chest x-ray completed which demonstrated a resolution of the patient's right-sided pneumothorax. A continuous air leak is present. Oxygen saturations are 98% on room air. He is hemodynamically stable and has been afebrile the last 24 hours. On 12/06/2019 the patient was seen on the cardiac stepdown unit and follow-up. The patient is resting comfortably in bed. He denies any complaints of shortness of breath or pain at this time and is in no acute distress. Repeat chest x-ray was completed this morning which demonstrated a 20-25% right-sided pneumothorax despite his right Thoravent tube being in place. Right Thoravent chest tube remains to low continuous wall suction -20 cm H2O. Continuous air leak is present and it is draining thin serosanguineous drainage with 20 mL output in the last 24 hours. He is hemodynamically stable, afebrile the last 24 hours and his oxygen saturations are 98% on room air. He is achieving 3000 mL on his incentive spirometry. Lab results today showed a WBC count 6.6, hemoglobin 15.6, platelets 236, BUN 24 and creatinine 0.86. He is on Toradol and morphine for pain control. Objective - Vital Signs Vital signs: Vital Signs Temp 97.9 F 12/06/19 08:00 Pulse 81 12/06/19 08:00 Resp 18 12/06/19 08:00 BP 126/68 12/06/19 08:00 Pulse Ox 98 12/06/19 08:00 Intake & Output 12/05/19 12/06/19 12/06/19 18:59 06:59 18:59 Intake Total 358 10 180 Output Total 200 Balance 358 -190 180 Weight 83 kg Intake: IV 10 0.9 10 Oral 358 180 Output: Chest Tube Drainage 0 Thora-Vent Right 0 Urine 200 Other: Voiding Method Toilet Urinal # Voids 1 # Bowel Movements 0 - Exam This is a 29-year-old gentleman who is in no acute distress. Cooperative. Oxygen saturation is 98% on room air. - Constitutional General appearance: Present: average body habitus, cooperative, no acute distress - EENT Eyes: Present: PERRLA, normal appearance. Absent: scleral icterus ENT: Present: hearing grossly normal, normal oropharynx - Neck Details: Neck is supple, no JVD. Neck: Absent: stridor, thyromegaly - Respiratory Details: Lung sounds essentially clear throughout, diminished to his right lower lobe. Respirations are symmetrical and nonlabored. Oxygen saturation 98% on room air. - Cardiovascular Details: Regular rhythm and rate. S1 and S2 present, negative for S3, gallop or murmur. - Gastrointestinal Gastrointestinal Comment(s): Abdomen is soft, nontender and nondistended. Active bowel sounds present in all 4 abdominal quadrants. No guarding or rigidity. No organomegaly. - Integumentary Integumentary Comment(s): Skin is warm and dry. No clubbing or cyanosis is present. No rash or abnormal pigmentation is present. Right chest Thoravent dressing is clean and dry. - Neurologic Neurologic: Present: CNII-XII intact - Musculoskeletal Musculoskeletal: Present: gait normal, strength equal bilaterally - Psychiatric Psychiatric: Present: A&O x's 3, appropriate affect, intact judgment & insight - Allied health notes Allied health notes reviewed: nursing - Labs CBC & Chem 7: 12/06/19 05:35 12/06/19 05:35 Labs: Abnormal Lab Results - Last 24 Hours (Table) 12/06/19 Range/Units 05:35 Sodium 136 L (137-145) mmol/L BUN 24 H (9-20) mg/dL ALT 78 H (4-49) U/L - Imaging and Cardiology Chest x-ray: report reviewed, image reviewed Assessment and Plan Assessment: 1. Spontaneous right sided tension pneumothorax, status post Thoravent chest tube placement 2. Acute shortness of breath secondary to above 3. Chronic ongoing tobacco abuse 4. History of methamphetamine use Plan: 1. Continue his right Thoravent chest tube to low continuous wall suction -20 cm H2O. Continue to monitor for airleak resolution. If the air leak remains persistent and continuous the patient may require a VATS or suture with wedge resection. 2. Continue to encourage use of his incentive spirometry 10 times every hour. 3. The importance of smoking cessation was discussed with the patient. 4. Continue to monitor his daily chest x-rays. 5. Pain management per current when necessary orders. 6. Medical management and other comorbidities per primary care and pulmonary medicine services. 7. More recommendations to follow based on patient's clinical course. Time with Patient: Less than 30
--- NOTE | 2019-12-06 23:19 | PN ---
PROGRESS NOTE This patient is a 29-year-old white male who still has a chest tube in. He is resting comfortably in bed. Denies any shortness of breath at this time. He had 20% to 25% right-sided pneumothorax with a chest x-ray today. ThoraVent tube is in place. Continuous air leak. He is 98% on room air. White count is 6.6, hemoglobin 15.6. BUN 24, creatinine 0.86. Temperature 97.9, pulse 80-81, blood pressure 120s over 60s, oxygen saturation 98% on room air. LUNGS: Diminished. CARDIOVASCULAR: S1, S2. GI: Soft. SKIN: No rash, excoriation, bruising. ASSESSMENT: 1. Pneumothorax, shortness of breath secondary to above. 2. Nicotine and methamphetamine use. Possibly VATS or suture with wedge resection. Incentive spirometry. Please see further orders. Monitor chest x-rays. MMODL / IJN: [id number] /
[2019-12-07] MEDS: MORPHINE SULFATE 4 MG/ML SYRINGE IV PRN ×2 (03:32→08:33)
--- NOTE | 2019-12-07 08:19 | XR ---
EXAMINATION TYPE: XR chest 1V portable DATE OF EXAM: 12/07/2019 COMPARISON: 12/06/2019 INDICATION: Right-sided pneumothorax TECHNIQUE: Single frontal view of the chest is obtained. FINDINGS: The heart size is normal. The pulmonary vasculature is normal. There is a large right-sided pneumothorax approaching 50%. This is significantly increased in size ov er the interval. Chest tube is stable in position in the right upper chest. IMPRESSION: 1. Increasing size of a large right-sided pneumothorax. A Red level critical message alert has been initiated for Jhon Hammond MD via the [employer] Critical Results System on 12/07/2019 8:16 AM. This message alert has been sent to Jhon Hammond MD via the preferences provided by the clinician for the receipt of Radiology Critical Findings. Message ID [id number].
[2019-12-07] MEDS ORDERED: fentaNYL (PF) 50 MCG/ML 2 ML AMP ONE (09:18)
[2019-12-07] MEDS ORDERED: NEOSTIGMINE 1 MG/ML 10 ML VIAL ONE (09:18)
[2019-12-07] MEDS ORDERED: HYDROmorphone (PF) 1 MG/ML ONE (09:18)
[2019-12-07] MEDS ORDERED: PROPOFOL 10 MG/ML 20 ML VIAL IV ONE (09:18)
[2019-12-07] MEDS ORDERED: ROCURONIUM BROMIDE 10 MG/ML 5 ML VIAL IV ONE (09:18)
[2019-12-07] MEDS ORDERED: PHENYLEPHRINE-0.9% NACL SYG 1 MG/10 ML SYRINGE ONE (09:18)
[2019-12-07] MEDS ORDERED: GLYCOPYRROLATE 0.2 MG/ML 2 ML VIAL ONE (09:18)
[2019-12-07] MEDS ORDERED: SUCCINYLCHOLINE CHLORIDE VIAL 200 MG/10 ML VIAL IV ONE (09:18)
[2019-12-07] MEDS ORDERED: MIDAZOLAM 2 MG/2 ML VIAL ONE (09:18)
[2019-12-07] MEDS ORDERED: LACTATED RINGERS 1,000 ML IV ONE ×2 (09:19→10:51)
[2019-12-07] MEDS ORDERED: BUPIVACAINE (PF) 0.5% 30 ML VIAL SQ ONE (10:10)
--- NOTE | 2019-12-07 11:00 | P.OP ---
Date of Procedure: 12/07/19 Preoperative Diagnosis: Persistent pneumothorax with persistent air leak right side Postoperative Diagnosis: Same Procedure(s) Performed: Right thoracoscopy with staple of blebs, mechanical pleurodesis Anesthesia: KIRK Surgeon: Jorge L Saucedo Estimated Blood Loss (ml): 10 IV fluids (ml): 200 Urine output (ml): 0 Pathology: other (Wedge resection right apical blebs, wedge resection blebs from base of right upper lobe) Condition: stable Disposition: floor Indications for Procedure: 29-year-old male presented from incarceration with spontaneous pneumothorax and complete pneumothorax on the right side. Thorough vent was placed. Right lung expanded but had a persistent small apical pneumothorax and persistent air leak. After a week in the hospital thoracic surgery was consulted. We observe the patient for 2 days and noted increasing pneumothorax despite continued suction on the Thora vent. There was also increasing persistent air leak. Surgery was recommended. Operative Findings: There were no intrapleural adhesions. The apex had multiple blebs. Small blebs were also noted along the inferior border of the right upper lobe. Description of Procedure: The patient was brought to the operating room, placed supine on the operating table, anesthetized and intubated with a double-lumen endotracheal tube. Tube was positioned with fiberoptic bronchoscopy and secured. No endobronchial lesions were noted. Patient was turned in the left lateral decubitus position of the right chest sterilely prepped and draped. 3 one-inch incisions were made in the right chest at the video thoracoscope was introduced. Single lung ventilation was utilized. Marketed apical blebs were noted at the apex of the right upper lobe. Initial resection line ran from laterally to medially around the top of the apex of the lung. Further blebs were noted on the mediastinal aspect of the apex. These were resected with a T-type of staple line. Following this we were very happy with our lobectomy. The remainder of the lung was explored. Some small area of blebs was noted along the inferior aspect the right upper lobe. The worst of these was resected. Mechanical pleurodesis of the entire pleural space was then performed with sponges. 28-[place] chest tube was placed through separate anterior incision and positioned posterior apically. It was secured with an 0 Ethibond suture. The lung was reexpanded under thoracoscopic visualization. Rib blocks were performed at the level of the incisions with half percent Marcaine. Incisions were closed with layers of Vicryl suture. Dry sterile dressings were applied. The patient was turned supine and extubated and transferred to his room.
[2019-12-07] MEDS ORDERED: ONDANSETRON 4 MG/2 ML VIAL IVP PRN (12:54)
[2019-12-07] MEDS ORDERED: DEXTROSE 5%-0.45% NACL 1,000 ML IV SCH (13:00)
--- NOTE | 2019-12-07 13:11 | P.PN ---
Subjective Progress Note Date: 12/07/19 Principal diagnosis: Spontaneous tension pneumothorax on the right side Chest pain or shortness of breath related to above 12/07/2019, 12/07/2019 patient seen and evaluated examined, patient has persistent pneumothorax non-resolving has been taken to the OR for VATS procedure 12/05/2019, patient continued to have shortness of breath and a leak is still present, CN saturation is stable, this morning x-ray shows a 40% pneumothorax, thoracic surgery flushed the thoravent, x-ray improved now 12/04/2019, patient seen eval examined during the rounds labs reviewed medications reviewed radiographic studies reviewed, pneumothorax improved significantly, but still air leak is present cardiothoracic surgery have evaluated the patient and appreciate their input pain is better now is more of a soreness 12/03/2019, patient seen eval reexamined during the rounds labs reviewed medications reviewed care plan discussed with the patient radiographic studies reviewed, chest x-ray still showing moderate pneumothorax, subcu emphysema chest tube is still draining air This is a 29-year-old male who was in incarceration patient has a history of smoking 1 pack per day has not been smoking for last 1 month, patient has a acute onset of chest pain on the right side with increasing shortness of breath came into emergency department chest x-ray showed her and noted to have more th an 90% pneumothorax with midline shift evidence of a tension pneumothorax patient underwent for a vent placement post procedure chest x-ray showed improvement with a residual 50% pneumothorax this morning x-ray is 20% pneumothorax, chest tube has been connected to suction -20 cm water, today's x-ray reviewed 20% pneumothorax is present, significant air leak is still present, Objective - Vital Signs Vital signs: Vital Signs Temp 98.0 F 12/07/19 08:00 Pulse 61 12/07/19 12:15 Resp 16 12/07/19 12:15 BP 115/58 12/07/19 12:15 Pulse Ox 100 12/07/19 12:15 Intake & Output 12/06/19 12/07/19 12/07/19 18:59 06:59 18:59 Intake Total 540 1250 Output Total 0 0 10 Balance 540 0 1240 Weight 83.5 kg Intake: IV 1250 Oral 540 Output: Chest Tube Drainage 0 0 Thora-Vent Right 0 0 Estimated Blood Loss 10 Other: Voiding Method Toilet Urinal # Voids 1 # Bowel Movements 0 - Labs CBC & Chem 7: 12/06/19 05:35 12/06/19 05:35 Assessment and Plan Assessment: Persistent right-sided pneumothorax Spontaneous tension pneumothorax on the right side Chest pain or shortness of breath related to above Plan: Continue thoravent vent Chest tube to suction Continue deep breathing exercise Pain management Reviewed Consult cardiothoracic surgery non-resolving pneumothorax Patient is being taken for VATS procedure Time with Patient: Greater than 30
--- NOTE | 2019-12-07 13:42 | XR ---
EXAMINATION TYPE: XR chest 1V DATE OF EXAM: 12/07/2019 COMPARISON: Chest x-ray earlier the same date. HISTORY: Postop right-sided VATS TECHNIQUE: Single frontal view of the chest is obtained. FINDINGS: Right thoracostomy tube has been exchange for a larger caliber chest tube. There is a smal l residual right apical pneumothorax measuring 1.2 cm. Thoracostomy defects are seen in the right inf erior ribs. Right pneumothorax has markedly improved from the prior. Mild axillary and subcutaneous c hest wall emphysema on the right. Scattered areas of atelectasis peripherally in the right and the le ft costophrenic angle. No new pleural effusion or left-sided pneumothorax. Stable cardiomediastinal s ilhouette. IMPRESSION: Exchange of the right thoracostomy tube with marked improvement in the right-sided pneum othorax. Only trace right apical pneumothorax remains.
[2019-12-07] MEDS: ACETAMINOPHEN IV (For NPO) 1,000 MG in EMPTY BAG 1 BAG IVPB SCH ×2 (14:32→20:27)
[2019-12-07] MEDS: traMADol 50 MG TAB PO SCH ×3 (14:34→22:55)
[2019-12-07] MEDS: KETOROLAC 30 MG/ML 1 ML VIAL IVP SCH ×3 (14:38→22:55)
--- NOTE | 2019-12-07 17:02 | P.PN ---
Subjective Progress Note Date: 12/07/19 This is a 29-year-old gentleman admitted with spontaneous right-sided tension pneumothorax,status post ThoraVent chest tube placement, in a patient with nicotine and methamphetamine phentermine use. Coronavirus not detected. Chest x-ray reporting increasing large right pneumothorax, patient is being take n down to OR for Vats with stapling of bleb.Telemetry sinus bradycardia to sinus tach low 100s.VSS. Denies chest pain, palpitations. Objective - Vital Signs Vital signs: Vital Signs Temp 98.0 F 12/07/19 08:00 Pulse 82 12/07/19 08:00 Resp 16 12/07/19 08:00 BP 125/73 12/07/19 08:00 Pulse Ox 99 12/07/19 08:00 Intake & Output 12/06/19 12/07/19 12/07/19 18:59 06:59 18:59 Intake Total 540 Output Total 0 0 Balance 540 0 Weight 83.5 kg Intake: Oral 540 Output: Chest Tube Drainage 0 0 Thora-Vent Right 0 0 Other: Voiding Method Toilet Urinal # Voids 1 # Bowel Movements 0 - Exam PHYSICAL EXAM: VITAL SIGNS: As above GENERAL: Sitting up in bed, no acute distress HEENT: Conjunctivae normal. Trachea midline. NECK: No JVD. No thyroid enlargement. No LNs CARDIOVASCULAR: S1, S2 regular.. No murmur RESPIRATION: Breath sounds diminished in the bases. No rhonchi or crackles. ABDOMEN: Soft, nontender . No guarding. no masses palpable. Bowel sounds heard. LEGS: No edema. no swelling PSYCHIATRY: Alert and oriented X3, mood and affect normal. NERVOUS SYSTEM: Cranial N 2-12 grossly normal. Moves all 4 limbs. No focal deficits. Strength and sensation grossly intact.. Skin: no rash - Labs CBC & Chem 7: 12/06/19 05:35 12/06/19 05:35 Assessment and Plan Assessment: Spontaneous right sided tension pneumothorax, status post ThoraVent chest tube placement, worsening, VATS procedure with stapling of blebs pending Acute hypoxic respiratory failure secondary to the above ADD, ADHD History of Nicotine and methamphetamine use Coronavirus not detected Plan: Continue on current medication regime ,monitoring and symptomatic treatment. VATS procedure pending. Follow closely with both pulmonary and cardiothoracic surgery. Aggressive pulmonary toileting. The impression and plan of care has been dictated as directed. : I performed a history and examination of this patient, discussed the same with the dictator. I agree with the dictator's note ,documented as a scribe. Any additional findings or plans will be noted.
[2019-12-07] MEDS: HEPARIN SODIUM,PORCINE 5,000 UNIT/ML 1 ML VIAL SQ SCH (17:31)
[2019-12-07 21:38] VITALS: RESP 18
[2019-12-08] MEDS ORDERED: ACETAMINOPHEN TAB 500 MG TAB PO PRN (00:01)
[2019-12-08] MEDS: HEPARIN SODIUM,PORCINE 5,000 UNIT/ML 1 ML VIAL SQ SCH ×3 (01:42→18:35)
[2019-12-08 06:09] LABS: Basophils % (A) 0 %; Eosinophils # (A) 0.5 k/uL (0-0.7); Eosinophils % (A) 6 %; HCT 43.4 % (39.0-53.0); HGB 14.3 gm/dL (13.0-17.5); Lymphocytes # (A) 2.3 k/uL (1.0-4.8); Lymphocytes % (A) 29 %; MCH 28.5 pg (25.0-35.0); MCV 86.2 fL (80.0-100.0); Mean Platelet Volume 8.5; Monocytes # (A) 0.6 k/uL (0-1.0); Monocytes % (A) 7 %; Neutrophils # (A) 4.3 k/uL (1.3-7.7); Neutrophils % (A) 55 %; Platelet Count 219 k/uL (150-450); RBC 5.04 m/uL (4.30-5.90); RDW 12.5 % (11.5-15.5); WBC 7.8 k/uL (3.8-10.6)
[2019-12-08 06:22] LABS: African American GFR (CKD) >90 (>60 ml/min/1.73 sqM); Anion Gap 11 mmol/L; Blood Urea Nitrogen 23 mg/dL (9-20); Calcium 9.1 mg/dL (8.4-10.2); Carbon Dioxide 26 mmol/L (22-30); Chloride 100 mmol/L (98-107); Glucose 93 mg/dL (74-99); Non-African American GFR(CKD) >90 (>60 ml/min/1.73 sqM); Potassium 4.6 mmol/L (3.5-5.1); Sodium 137 mmol/L (137-145)
[2019-12-08] MEDS: KETOROLAC 30 MG/ML 1 ML VIAL IVP SCH ×3 (06:26→18:31)
--- NOTE | 2019-12-08 07:24 | XR ---
EXAMINATION TYPE: XR chest 1V DATE OF EXAM: 12/08/2019 COMPARISON: 12/07/2019 HISTORY: Post op VATS. Chest tube placement. TECHNIQUE: Single frontal view of the chest is obtained. FINDINGS: Right thoracostomy tube has its distal tip terminating medially on the right lung apex lik shelley abutting the pleural surface. Fenestrated portion is beyond the chest wall. Mild right axillary s ubcutaneous emphysema extends along the right lateral chest wall and is similar to the prior. Very tr abhishek residual right apical pneumothorax measures 0.6 cm as opposed to 1.2 cm on the prior. Minimal ate lectasis at the left lung base. Scattered areas of right-sided atelectasis have improved. Stable none nlarged cardiac mediastinal silhouette. Right rib deformities from the patient's known recent VATS pr ocedure. IMPRESSION: Improving tiny right apical pneumothorax and similar positioning of the right thoracosto my tube described above. Scattered areas of subsegmental atelectasis.
[2019-12-08] MEDS: traMADol 50 MG TAB PO SCH ×4 (08:38→22:04)
--- NOTE | 2019-12-08 09:33 | P.PN ---
Subjective Progress Note Date: 12/08/19 Principal diagnosis: Spontaneous tension pneumothorax on the right side Chest pain or shortness of breath related to above 12/08/2019, patient is status post VATS procedure postop day #1 doing well some discomfort is present, right-sided chest tube not taking any more air, chest x- ray revealed very tiny apical pneumothorax stable right-sided chest tube 12/07/2019, 12/07/2019 patient seen and evaluated examined, patient has persistent pneumothorax non-resolving has been taken to the OR for VATS procedure 12/05/2019, patient continued to have shortness of breath and a leak is still present, CN saturation is stable, this morning x-ray shows a 40% pneumothorax, thoracic surgery flushed the thoravent, x-ray improved now 12/04/2019, patient seen eval examined during the rounds labs reviewed medications reviewed radiographic studies reviewed, pneumothorax improved sign ificantly, but still air leak is present cardiothoracic surgery have evaluated the patient and appreciate their input pain is better now is more of a soreness 12/03/2019, patient seen eval reexamined during the rounds labs reviewed medications reviewed care plan discussed with the patient radiographic studies reviewed, chest x-ray still showing moderate pneumothorax, subcu emphysema chest tube is still draining air This is a 29-year-old male who was in incarceration patient has a history of sm oking 1 pack per day has not been smoking for last 1 month, patient has a acute onset of chest pain on the right side with increasing shortness of breath came into emergency department chest x-ray showed her and noted to have more than 90% pneumothorax with midline shift evidence of a tension pneumothorax patient underwent for a vent placement post procedure chest x-ray showed improvement with a residual 50% pneumothorax this morning x-ray is 20% pneumothorax, chest tube has been connected to suction -20 cm water, today's x-ray reviewed 20% pneumothorax is present, significant air leak is still present, Objective - Vital Signs Vital signs: Vital Signs Temp 98.4 F 12/08/19 04:14 Pulse 53 L 12/08/19 04:14 Resp 18 12/08/19 04:14 BP 126/78 12/08/19 04:14 Pulse Ox 98 12/08/19 04:14 Intake & Output 12/07/19 12/08/19 12/08/19 18:59 06:59 18:59 Intake Total 1950 980 Output Total 10 30 Balance 1940 950 Weight 85 kg Intake: IV 1250 Intake, IV Titration 980 Amount ACETAMINOPHEN IV (For NPO 400 ) 1,000 mg In Empty Bag 1 bag @ 400 mls/hr IVPB Q6H [facility] Rx#:[id number] Dextrose 5%-0.45% NaCl 1, 480 000 ml @ 40 mls/hr IV . Q24H [facility] Rx#:[id number] ceFAZolin 2 gm In Sodium 100 Chloride 0.9% 50 ml @ 100 mls/hr IVPB Q8H [facility] Rx#: [id number] Oral 700 Output: Chest Tube Drainage 30 Thora-Vent Right 30 Estimated Blood Loss 10 Other: Voiding Method Toilet Urinal # Voids 2 - Exam - Constitutional General appearance: average body habitus, cooperative, disheveled - EENT Eyes: EOMI, PERRLA ENT: normal oropharynx Ears: bilateral: normal - Neck Neck: normal ROM Carotids: bilateral: upstroke normal Thyroid: bilateral: normal size - Respiratory Respiratory: right: diminished, negative: CTA, improved air entry Cardiovascular regular rate and rhythm S1, S2 - Gastrointestinal General gastrointestinal: normal bowel sounds, soft - Integumentary Integumentary: normal turgor - Neurologic Neurologic: CNII-XII intact - Musculoskeletal Musculoskeletal: gait normal, strength equal bilaterally - Psychiatric Psychiatric: A&O x's 3, appropriate affect, intact judgment & insight - Labs CBC & Chem 7: 12/08/19 04:59 12/08/19 04:59 Labs: Abnormal Lab Results - Last 24 Hours (Table) 12/08/19 Range/Units 04:59 BUN 23 H (9-20) mg/dL Assessment and Plan Assessment: Tiny residual right-sided pneumothorax status post VATS postop day #1 Spontaneous tension pneumothorax on the right side Chest pain or shortness of breath related to above Plan: Continue chest tube, will DC it as per thoracic surgery recommendation Continue deep breathing exercise Pain management Time with Patient: Greater than 30
[2019-12-08 10:03] VITALS: BMI 24.0
--- NOTE | 2019-12-08 10:50 | P.PN ---
Subjective Progress Note Date: 12/08/19 Principal diagnosis: This is a 29-year-old gentleman who is incarceration and recently moved here from [place]. He is a past medical history significant for chronic ongoing tobacco use which she smokes about one pack per day, and a recent history of methamphetamine use. He reports the last time he used methamphetamine was about 1-1/2 months ago. He presented to the emergency department here at [facility] on 12/01/2019 with complaints of acute onset of shortness of breath and right-sided chest pain. 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 He states that he has been having some intermittent episodes of pain to his right chest since. Denies any complaints of nausea or vomiting, hemoptysis, cough, recent trauma or injury, fever or chills. In the emergency department a chest x-ray was completed which demonstrated a large, greater than 90% right- sided pneumothorax with slight left for chest suggesting early tension pneumothorax. Subsequently, a right chest Thoravent was placed by the emergency room physician. Post Thoravent placement a repeat chest x-ray was completed which showed partial reinflation of the right lung by approximately 50%. The right Thoravent chest tube remains in place with continuous air leak present, and his chest x-ray report from yesterday shows a moderate right-sided pneumothorax with subcutaneous emphysema. Due to the patient's continuous air leak and persistent right-sided pneumothorax a consult was placed Dr. Jorge L Saucedo from cardiothoracic surgery for further evaluation and treatment recommendations. POD #1 Right thoracoscopy with staple of blebs, mechanical pleurodesis. The patient was seen on 12/08/2019 in follow up at his bedside on the cardiac stepdown unit. He is awake and alert and oriented 3. He is sitting up to the bedside chair in no acute distress. Denies any complaints of shortness of breath although is complaining of minimal surgical type pain to his right chest. He reports that the current pain medication regimen is working for him as well as using hot packs. His right pleural chest tube remains in place to low continuous wall suction -20 cm H2O. Small intermittently airleak is present. Draining thin serosanguineous drainage with 130 mL output since surgery. He is using his incentive spirometry and is achieving 2500 mL with encouragement. Oxygen saturations are 98% on room air. Dressings are clean and dry to his right chest. He is anxious to be discharged home. Laboratory results today show a WBC count 7.8, hemoglobin 14.3, platelets 219, BUN 23, creatinine 0.89. He remains hemodynamically stable and has been afebrile the last 24 hours. Objective - Vital Signs Vital signs: Vital Signs Temp 98.3 F 12/08/19 08:00 Pulse 70 12/08/19 08:00 Resp 18 12/08/19 08:00 BP 121/69 12/08/19 08:00 Pulse Ox 100 12/08/19 08:00 Intake & Output 12/07/19 12/08/19 12/08/19 18:59 06:59 18:59 Intake Total 1950 980 240 Output Total 10 30 Balance 1940 950 240 Weight 85 kg 85 kg Intake: IV 1250 Intake, IV Titration 980 Amount ACETAMINOPHEN IV (For NPO 400 ) 1,000 mg In Empty Bag 1 bag @ 400 mls/hr IVPB Q6H [facility] Rx#:[id number] Dextrose 5%-0.45% NaCl 1, 480 000 ml @ 40 mls/hr IV . Q24H [facility] Rx#:[id number] ceFAZolin 2 gm In Sodium 100 Chloride 0.9% 50 ml @ 100 mls/hr IVPB Q8H [facility] Rx#: [id number] Oral 700 240 Output: Chest Tube Drainage 30 Thora-Vent Right 30 Estimated Blood Loss 10 Other: Voiding Method Toilet Urinal # Voids 2 - Exam This is a 29-year-old gentleman who is in no acute distress. Cooperative. Oxygen saturation is 98% on room air. Sitting up to the bedside recliner. - Constitutional General appearance: Present: average body habitus, cooperative, no acute distress - EENT Eyes: Present: PERRLA, normal appearance. Absent: scleral icterus ENT: Present: hearing grossly normal, normal oropharynx. Absent: thrush - Neck Details: Neck is supple, no lymphadenopathy. No JVD. - Respiratory Details: Lung sounds are essentially clear throughout, no wheezes, rhonchi or crackles. Respirations are symmetrical and nonlabored. - Cardiovascular Details: Regular rhythm and rate. S1 and S2 present, negative for S3, gallop or murmur. - Gastrointestinal Gastrointestinal Comment(s): Abdomen is soft, nontender and nondistended. Active bowel sounds present in all 4 abdominal quadrants. No guarding or rigidity. No organomegaly. - Integumentary Integumentary Comment(s): Skin is warm and dry. No clubbing or cyanosis is present. Dressing is clean dry and intact to his right chest incision sites and to his chest tube site. - Neurologic Neurologic: Present: CNII-XII intact - Musculoskeletal Musculoskeletal: Present: gait normal, strength equal bilaterally - Psychiatric Psychiatric: Present: A&O x's 3, appropriate affect, intact judgment & insight - Allied health notes Allied health notes reviewed: nursing - Labs CBC & Chem 7: 12/08/19 04:59 12/08/19 04:59 Labs: Abnormal Lab Results - Last 24 Hours (Table) 12/08/19 Range/Units 04:59 BUN 23 H (9-20) mg/dL - Imaging and Cardiology Chest x-ray: report reviewed, image reviewed Assessment and Plan Assessment: 1. Spontaneous right sided tension pneumothorax, status post Thoravent chest tube placement, status post right thoracoscopy with staple of blebs, mechanical pleurodesis 2. Acute shortness of breath secondary to above, resolved 3. Chronic ongoing tobacco abuse 4. History of methamphetamine use Plan: 1. Place right pleural chest tube to waterseal. Continue to record accurate I's and O's. 2. Continue to encourage use of his incentive spirometry 10 times every hour. 3. Reinforced the importance of smoking cessation with the patient. 4. Continue to monitor his daily chest x-rays. 5. Pain management per current when necessary orders. 6. Medical management and other comorbidities per primary care and pulmonary medicine services. 7. Pathology results remain pending. We will continue to follow. 8. More recommendations to follow based on patient's clinical course. Time with Patient: Less than 30
--- NOTE | 2019-12-08 17:57 | P.PN ---
Subjective Progress Note Date: 12/08/19 This is a 29-year-old gentleman admitted with spontaneous right-sided tension pneumothorax,status post ThoraVent chest tube placement, in a patient with nicotine and methamphetamine phentermine use. Coronavirus not detected. Chest x-ray reporting increasing large right pneumothorax, patient is being take n down to OR for Vats with stapling of bleb.Telemetry sinus bradycardia to sinus tach low 100s.VSS. Denies chest pain, palpitations. 12/08/2019 Complain of mild tenderness at chest tube insertion site. Vital signs stable, maintaining O2 sats in the high 90s on room air. Incentive spirometer up to 2500. Afebrile. Objective - Vital Signs Vital signs: Vital Signs Temp 98.3 F 12/08/19 08:00 Pulse 66 12/08/19 12:00 Resp 18 12/08/19 12:00 BP 145/108 12/08/19 12:00 Pulse Ox 100 12/08/19 12:00 Intake & Output 12/07/19 12/08/19 12/08/19 18:59 06:59 18:59 Intake Total 1950 980 360 Output Total 10 30 Balance 1940 950 360 Weight 85 kg 85 kg Intake: IV 1250 Intake, IV Titration 980 Amount ACETAMINOPHEN IV (For NPO 400 ) 1,000 mg In Empty Bag 1 bag @ 400 mls/hr IVPB Q6H [facility] Rx#:[id number] Dextrose 5%-0.45% NaCl 1, 480 000 ml @ 40 mls/hr IV . Q24H [facility] Rx#:[id number] ceFAZolin 2 gm In Sodium 100 Chloride 0.9% 50 ml @ 100 mls/hr IVPB Q8H [facility] Rx#: [id number] Oral 700 360 Output: Chest Tube Drainage 30 Thora-Vent Right 30 Estimated Blood Loss 10 Other: Voiding Method Toilet Urinal # Voids 2 - Exam PHYSICAL EXAM: VITAL SIGNS: As above GENERAL: Sitting up in recliner, no acute distress HEENT: Conjunctivae normal. Trachea midline. NECK: No JVD. No thyroid enlargement. No LNs CARDIOVASCULAR: S1, S2 regular.. No murmur RESPIRATION: Breath sounds diminished in the bases. No rhonchi or crackles. Right pleural chest tube to waterseal. ABDOMEN: Soft, nontender . No guarding. no masses palpable. Bowel sounds heard. LEGS: No edema. no swelling PSYCHIATRY: Alert and oriented X3, mood and affect normal. NERVOUS SYSTEM: Cranial N 2-12 grossly normal. Moves all 4 limbs. No focal deficits. Strength and sensation grossly intact.. Skin: no rash - Labs CBC & Chem 7: 12/08/19 04:59 04 04:59 Labs: Abnormal Lab Results - Last 24 Hours (Table) 12/08/19 Range/Units 04:59 BUN 23 H (9-20) mg/dL Assessment and Plan Assessment: Spontaneous right sided tension pneumothorax, status post ThoraVent chest tube placement, worsening, status post thoracoscopy with stapling of blebs, mechanical pleurodesis Acute hypoxic respiratory failure secondary to the above, resolved ADD, ADHD History of Nicotine and methamphetamine use Coronavirus not detected Plan: Continue on current medication regime ,monitoring and symptomatic treatment. Pathology pending .pain management. Aggressive pulmonary toileting, with incentive spirometer reinforced. Smoking cessation reinforced. Discharge planning in progress, soon. The impression and plan of care has been dictated as directed. : I performed a history and examination of this patient, discussed the same with the dictator. I agree with the dictator's note ,documented as a scribe. Any additional findings or plans will be noted.
[2019-12-09] MEDS: KETOROLAC 30 MG/ML 1 ML VIAL IVP SCH ×3 (00:13→11:16)
[2019-12-09] MEDS: HEPARIN SODIUM,PORCINE 5,000 UNIT/ML 1 ML VIAL SQ SCH ×2 (00:13→08:13)
[2019-12-09 04:48] VITALS: TEMP 97.9
--- NOTE | 2019-12-09 08:05 | XR ---
EXAMINATION TYPE: XR chest 1V portable DATE OF EXAM: 12/09/2019 CLINICAL HISTORY: Difficulty breathing progress study. Postoperative VATS. TECHNIQUE: Single AP portable upright view of the chest is obtained. COMPARISON: Chest x-ray from one day earlier and older studies. FINDINGS: Stable right apical chest tube with suspected tiny right apical pneumothorax may be stable or slightly larger from most recent study. Background chronic emphysematous change. No mediastinal s hift. No new focal airspace opacity. Cardiac silhouette size stable and within normal limits. Osseous structures are intact. IMPRESSION: Small to tiny right apical pneumothorax seen better on current study stable or slightly l arger from most recent x-ray with right apical chest tube in place.
[2019-12-09] MEDS: traMADol 50 MG TAB PO SCH (08:11)
[2019-12-09 09:12] VITALS: BP 120/63; PULSE 87
--- NOTE | 2019-12-09 09:40 | P.PN ---
Subjective Progress Note Date: 12/09/19 Principal diagnosis: This is a 29-year-old gentleman who is incarceration and recently moved here from [place]. He is a past medical history significant for chronic ongoing tobacco use which she smokes about one pack per day, and a recent history of methamphetamine use. He reports the last time he used methamphetamine was about 1-1/2 months ago. He presented to the emergency department here at [facility] on 12/01/2019 with complaints of acute onset of shortness of breath and right-sided chest pain. 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 He states that he has been having some intermittent episodes of pain to his right chest since. Denies any complaints of nausea or vomiting, hemoptysis, cough, recent trauma or injury, fever or chills. In the emergency department a chest x-ray was completed which demonstrated a large, greater than 90% right- sided pneumothorax with slight left for chest suggesting early tension pneumothorax. Subsequently, a right chest Thoravent was placed by the emergency room physician. Post Thoravent placement a repeat chest x-ray was completed which showed partial reinflation of the right lung by approximately 50%. The right Thoravent chest tube remains in place with continuous air leak present, and his chest x-ray report from yesterday shows a moderate right-sided pneumothorax with subcutaneous emphysema. Due to the patient's continuous air leak and persistent right-sided pneumothorax a consult was placed Dr. Jorge L Saucedo from cardiothoracic surgery for further evaluation and treatment recommendations. POD #2 Right thoracoscopy with staple of blebs, mechanical pleurodesis. The patient was seen on 12/08/2019 in follow up at his bedside on the cardiac stepdown unit. He is awake and alert and oriented 3. He is sitting up to the bedside chair in no acute distress. Denies any complaints of shortness of breath although is complaining of minimal surgical type pain to his right chest. He reports that the current pain medication regimen is working for him as well as using hot packs. His right pleural chest tube remains in place to low continuous wall suction -20 cm H2O. Small intermittently airleak is present. Draining thin serosanguineous drainage with 130 mL output since surgery. He is using his incentive spirometry and is achieving 2500 mL with encouragement. Oxygen saturations are 98% on room air. Dressings are clean and dry to his right chest. He is anxious to be discharged home. Laboratory results today show a WBC count 7.8, hemoglobin 14.3, platelets 219, BUN 23, creatinine 0.89. He remains hemodynamically stable and has been afebrile the last 24 hours. The patient was seen on 12/09/2019 in follow-up at his bedside on the cardiac stepdown unit. He is currently sitting up to the bedside chair, awake, alert and oriented 3. He is in no acute distress. Denies any complaints of pain or shortness of breath at this time. He remains hemodynamically stable and is been afebrile the last 24 hours. A follow-up chest x-ray was completed this morning which does not show any appreciable pneumothorax. Oxygen saturations are 100% on room air and he is achieving 3672-1475 milliliters on his incentive spirometry. Right pleural chest tube remains in place to water seal. No air leak is present. Draining thin serosanguineous drainage with 25 mL output in the last 24 hours. Objective - Vital Signs Vital signs: Vital Signs Temp 97.9 F 12/09/19 08:15 Pulse 87 12/09/19 08:15 Resp 18 12/09/19 08:15 BP 120/63 12/09/19 08:15 Pulse Ox 100 12/09/19 08:15 Intake & Output 12/08/19 12/09/19 12/09/19 18:59 06:59 18:59 Intake Total 600 600 Output Total 24 Balance 600 -24 600 Weight 85 kg 92 kg Intake: Oral 600 600 Output: Chest Tube Drainage 24 Thora-Vent Right 24 Other: Voiding Method Toilet Toilet Urinal Urinal - Exam This is a 29-year-old gentleman who is in no acute distress, who is sitting up to the bedside chair. Cooperative. Oxygen saturation is 100% on room air. - Constitutional General appearance: Present: average body habitus, cooperative, no acute distress - EENT Eyes: Present: PERRLA, normal appearance. Absent: scleral icterus ENT: Present: normal oropharynx. Absent: thrush - Neck Details: Neck is supple, no JVD. Neck: Absent: lymphadenopathy, stridor - Respiratory Details: Lung sounds are essentially clear throughout, diminished to his right lower lobe. Respirations are symmetrical and nonlabored. - Cardiovascular Details: Regular rhythm and rate. S1 and S2 present, negative for S3, gallop or murmur. - Gastrointestinal Gastrointestinal Comment(s): Abdomen is soft, nontender and nondistended. Active bowel sounds present all 4 abdominal quadrants. No guarding or rigidity. No organomegaly. - Integumentary Integumentary Comment(s): Skin is warm and dry. No clubbing or cyanosis is present. Dressings are clean, dry and in place to his right chest. Integumentary: Absent: rash - Neurologic Neurologic: Present: CNII-XII intact - Musculoskeletal Musculoskeletal: Present: gait normal, strength equal bilaterally - Psychiatric Psychiatric: Present: A&O x's 3, appropriate affect, intact judgment & insight - Allied health notes Allied health notes reviewed: nursing - Labs CBC & Chem 7: 12/08/19 04:59 12/08/19 04:59 - Imaging and Cardiology Chest x-ray: report reviewed, image reviewed Assessment and Plan Assessment: 1. Spontaneous right sided tension pneumothorax, status post Thoravent chest tube placement, status post right thoracoscopy with staple of blebs, mechanical pleurodesis 2. Acute shortness of breath secondary to above, resolved 3. Chronic ongoing tobacco abuse 4. History of methamphetamine use Plan: 1. His right pleural chest tube has been removed without incident. 4 x 4 gauze dressing, impregnated Vaseline gauze dressing applied and secured with tape. The patient has been instructed to remove the dressing in 48 hours after chest tube removal. 2. Continue to encourage use of his incentive spirometry 10 times every hour. 3. Reinforced the importance of smoking cessation with the patient. 4. Pain management per current when necessary orders. 5. Pathology are resulted and showed LUNG, RIGHT UPPER LOBE APEX, WEDGE EXCISION: Benign alveolar parenchyma with subpleural bullous cyst formation, reactive and eosinophilic pleuritis, fibrosis/scar, mild chronic inflammation, respiratory bronchiolitis and emphysematous change, and LUNG, RIGHT UPPER LOBE, WEDGE EXCISION: Subpleural bullous cyst with reactive and eosinophilic pleuritis, scar/fibrosis, mild chronic inflammation, hemorrhage and respiratory bronchiolitis. 6. Medical management and other comorbidities per primary care and pulmonary medicine services. 7. The patient can be discharged home per the cardiothoracic surgery standpoint and will follow-up in the office with Dr. Jorge L Saucedo next , 12/16/2019 at 10:15 AM. 8. A prescription for a follow-up chest x-ray has been given to the patient. Time with Patient: Less than 30
--- NOTE | 2019-12-09 10:05 | P.PN ---
Subjective Progress Note Date: 12/09/19 Principal diagnosis: Spontaneous tension pneumothorax on the right side Chest pain or shortness of breath related to above 12/08/2019, patient seen eval reexamined during the round status post arrest procedure postop day #2 morning x-ray with a chest tube continue show tiny ap ical pneumothorax tube has been removed successfully repeat x-ray post removal of fluid is pending respiratory standpoint patient has been doing well denies any chest pain or shortness of breath if x-ray stable likely will be discharged home with follow-up in outpatient basis 12/08/2019, patient is status post VATS procedure postop day #1 doing well some discomfort is present, right-sided chest tube not taking any more air, chest x- ray revealed very tiny apical pneumothorax stable right-sided chest tube 12/07/2019, 12/07/2019 patient seen and evaluated examined, patient has persistent pneumothorax non-resolving has been taken to the OR for VATS procedure 12/05/2019, patient continued to have shortness of breath and a leak is still present, CN saturation is stable, this morning x-ray shows a 40% pneumothorax, thoracic surgery flushed the thoravent, x-ray improved now 12/04/2019, patient seen eval examined during the rounds labs reviewed medications reviewed radiographic studies reviewed, pneumothorax improved significantly, but still air leak is present cardiothoracic surgery have evaluated the patient and appreciate their input pain is better now is more of a soreness 12/03/2019, patient seen eval reexamined during the rounds labs reviewed medications reviewed care plan discussed with the patient radiographic studies reviewed, chest x-ray still showing moderate pneumothorax, subcu emphysema chest tube is still draining air This is a 29-year-old male who was in incarceration patient has a history of smoking 1 pack per day has not been smoking for last 1 month, patient has a acute onset of chest pain on the right side with increasing shortness of breath came into emergency department chest x-ray showed her and noted to have more than 90% pneumothorax with midline shift evidence of a tension pneumothorax patient underwent for a vent placement post procedure chest x-ray showed improvement with a residual 50% pneumothorax this morning x-ray is 20% pneumothorax, chest tube has been connected to suction -20 cm water, today's x- ray reviewed 20% pneumothorax is present, significant air leak is still present, Objective - Vital Signs Vital signs: Vital Signs Temp 97.9 F 12/09/19 08:15 Pulse 87 12/09/19 08:15 Resp 18 12/09/19 08:15 BP 120/63 12/09/19 08:15 Pulse Ox 100 12/09/19 08:15 Intake & Output 12/08/19 12/09/19 12/09/19 18:59 06:59 18:59 Intake Total 600 600 Output Total 24 Balance 600 -24 600 Weight 85 kg 92 kg Intake: Oral 600 600 Output: Chest Tube Drainage 24 Thora-Vent Right 24 Other: Voiding Method Toilet Toilet Urinal Urinal - Exam - Constitutional General appearance: average body habitus, cooperative, disheveled - EENT Eyes: EOMI, PERRLA ENT: normal oropharynx Ears: bilateral: normal - Neck Neck: normal ROM Carotids: bilateral: upstroke normal Thyroid: bilateral: normal size - Respiratory Respiratory: right: diminished, negative: CTA, improved air entry Cardiovascular regular rate and rhythm S1, S2 - Gastrointestinal General gastrointestinal: normal bowel sounds, soft - Integumentary Integumentary: normal turgor - Neurologic Neurologic: CNII-XII intact - Musculoskeletal Musculoskeletal: gait normal, strength equal bilaterally - Psychiatric Psychiatric: A&O x's 3, appropriate affect, intact judgment & insight - Labs CBC & Chem 7: 12/08/19 04:59 12/08/19 04:59 Assessment and Plan Assessment: Tiny residual right-sided pneumothorax status post VATS postop day #2 Spontaneous tension pneumothorax on the right side Chest pain or shortness of breath related to above Plan: Continue supportive care Agree with discharge planning post x-ray if remains stable Continue deep breathing exercise Pain management Follow-up as outpatient as needed Time with Patient: Greater than 30
--- NOTE | 2019-12-09 11:17 | XR ---
EXAMINATION TYPE: XR chest 1V DATE OF EXAM: 12/09/2019 CLINICAL HISTORY: Chest tube removal. TECHNIQUE: Single AP portable upright view of the chest is obtained. COMPARISON: Chest x-ray from earlier today and older studies FINDINGS: Stable tiny right apical pneumothorax after chest tube removal. Background chronic emphys ematous change redemonstrated. No mediastinal shift. No new focal airspace opacity. Cardiac silhouett e size stable and within normal limits. Osseous structures are intact. Right apical medial scarring p resent. IMPRESSION: Stable tiny right apical pneumothorax after chest tube removal.
--- NOTE | 2019-12-09 15:48 | P.DS ---
Providers Date of admission: 12/01/19 18:19 Expected date of discharge: 12/09/19 Attending physician: Jhon Hammond Consults: 12/01/19 18:20 Consult Physician Urgent Consulting Provider: Andrea Flores Consult Reason/Comments: spontanous pneumothorax, s/p chest tube placement Do you want consulting provider notified?: Yes 12/03/19 14:59 Consult Physician Routine Consulting Provider: Jorge L Saucedo Consult Reason/Comments: non resolving pneumothorax Do you want consulting provider notified?: Yes Primary care physician: Stated None Hospital Course: Final Diagnoses: Spontaneous right sided tension pneumothorax, status post ThoraVent chest tube placement, worsening, status post thoracoscopy with stapling of blebs, mechanical pleurodesis Acute hypoxic respiratory failure secondary to the above, resolved Pathology reported LUNG, RIGHT UPPER LOBE APEX, WEDGE EXCISION: Benign alveolar parenchyma with subpleural bullous cyst formation, reactive and eosinophilic pleuritis, fibrosis/scar, mild chronic inflammation, respiratory bronchiolitis and emphysematous change, and LUNG, RIGHT UPPER LOBE, WEDGE EXCISION: Subpleural bullous cyst with reactive and eosinophilic pleuritis, scar/fibrosis, mild chronic inflammation, hemorrhage and respiratory bronchiolitis.. Coronavirus not detected ADD, ADHD History of Nicotine and methamphetamine use Hospital course:This is a 29-year-old gentleman admitted with spontaneous right- sided tension pneumothorax,status post ThoraVent chest tube placement, in a patient with nicotine and methamphetamine phentermine use. Coronavirus not detected. Chest x-ray reporting increasing large right pneumothorax, patient is being taken down to OR for Vats with stapling of bleb.Telemetry sinus bradycardia to sinus tach low 100s.VSS. Denies chest pain, palpitations. 12/08/2019 Complain of mild tenderness at chest tube insertion site. Vital signs stable, maintaining O2 sats in the high 90s on room air. Incentive spirometer up to 2500. Afebrile. Right pleural chest tube discontinued. Post chest tube dc x-ray pending. Patient will be discharged home today in a stable condition with guarded prognosis, pending chest x-ray results, final DC recommendations and clearance from both pulmonary and cardiothoracic surgery. The impression and plan of care has been dictated as directed. : I performed a history and examination of this patient, discussed the same with the dictator. I agree with the dictator's note ,documented as a scribe. Any additional findings or plans will be noted. Patient Condition at Discharge: Stable Plan - Discharge Summary Follow up Appointment(s)/Referral(s): Jhon Hammond MD [STAFF PHYSICIAN] - 1 Week (Primary physician for future follow up appointments.) Jorge L Saucedo MD [STAFF PHYSICIAN] - 12/16/19 10:15 am (Please have a chest x-ray completed as instructed, prior to seeing Dr. Saucedo. ) Andrea Flores MD [STAFF PHYSICIAN] - 2 Weeks ([employer] - please follow up in 2 weeks with websphere administrator.) Ambulatory/Diagnostic Orders: XR chest 2V [RAD.AMB] Time Frame: 1 Week, Location: None Selected Patient Instructions/Handouts: Spontaneous Pneumothorax (DC), How to Stop Smoking (DC) Activity/Diet/Wound Care/Special Instructions: DISCHARGE INSTRUCTIONS: 1. No driving for 2 weeks, or until physician gives their ok. 2. No lifting, pushing, or pulling more than 10 pounds for 2 weeks. The physic cristiane will advise of any restriction changes. 3. Continue pain control per as needed orders. Alternate acetaminophen (Tylenol) and ibuprofen (Motrin/Advil) for pain. 4. Continue with incentive spirometry and splinting until otherwise directed by the physician. 5. Leave chest tube dressing for 48 hours. After that, remove all dressings and shower daily. 6. Routine incision care. No powders, lotions, ointments on incisions. 7. Please call surgeon/TRACK SWEEPER for temp greater than 101 F or purulent drainage from incisions. 8. Smoking cessation counseling and program information provided. For any questions or concerns please call nurse practitioner Michael at [phone] Discharge Disposition: HOME SELF-CARE
== END 2019-12-09 11:35 | disposition home or self-care (01) | DRG 163 ==
LOC: EC 14:40 → 3SCARD 18:19
PROVIDERS: ADMIT Family Medicine; ATTEND Family Medicine
PROC: 0W9930Z Drainage of Right Pleural Cavity with Drainage Device, Percutaneous Approach (ICD-10-PCS; 2019-12-01)
PROC: 0B5N4ZZ Destruction of Right Pleura, Percutaneous Endoscopic Approach (ICD-10-PCS; principal; 2019-12-07 09:30)
PROC: 0BBC4ZX Excision of Right Upper Lung Lobe, Percutaneous Endoscopic Approach, Diagnostic (ICD-10-PCS; principal; 2019-12-07 09:30)
DX: J93.0 Spontaneous tension pneumothorax (principal); J96.01 Acute respiratory failure with hypoxia; T79.7XXA Traumatic subcutaneous emphysema, initial encounter; J93.82 Other air leak; Z20.828 Contact with and (suspected) exposure to other viral communicable diseases; J43.9 Emphysema, unspecified; F41.9 Anxiety disorder, unspecified; F90.9 Attention-deficit hyperactivity disorder, unspecified type; F15.90 Other stimulant use, unspecified, uncomplicated; F17.210 Nicotine dependence, cigarettes, uncomplicated; Z71.6 Tobacco abuse counseling; Z82.61 Family history of arthritis; W01.0XXA Fall on same level from slipping, tripping and stumbling without subsequent striking against object, initial encounter
CPT/HCPCS: 36415; 71045; 71046; 80048; 80053; 83735; 84484; 85025; 85379; 85610; 85730; 86140; 87635; 88307; 93005; 96374; 96375; 96376; 99291